=== PATIENT | male | born 1965 | race Caucasian/White ===

== ENCOUNTER 2020-05-13 21:14 | Inpatient (IN) | payer BC, OTHER ==
[~2020-05-13] VITALS: Ht 172.7 cm; Wt 99.6 kg
--- NOTE | 2020-05-13 21:35 | NUR ---
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
--- NOTE | 2020-05-13 22:00 | NUR ---
54 YEAR OLD MALE TO ED FOR CHILLS, WEAKNESS, FATIGUE, FREQUENT COUGH, SORE THROAT, AND LIGHTHEADEDNESS. HE WAS SEEN TESTED AND TREATED FOR COVID AT AN URGENT CARE. HE WAS GIVEN ALBUTEROL, STEROIDS, AND ZPACK WITH NO IMPROVEMENT IN SYMPTOMS. O2 SAT ON RA WAS 91-92%. NASAL CANNULA PLACED WITH IMPROVEMENT IN SYMPTOMS.
[2020-05-13 22:18] LABS: BASOPHILS % (AUTO) 1 % (0-1); EOSINOPHILS % (AUTO) 0 % (1-7); LYMPHOCYTES % (AUTO) 24 % (22-44); MEAN CORPUSCULAR HEMOGLOBIN 29.7 pg (27.5-34.5); MEAN CORPUSCULAR HGB CONC 33.7 g/dL (33.2-36.2); MEAN PLATELET VOLUME 8.1 fL (7.4-10.4); MONOCYTES % (AUTO) 12 % (2-9); NEUTROPHILS % (AUTO) 64 % (42-75); PLATELET COUNT 150 x10^3/uL (130-400); RED BLOOD COUNT 5.22 x10^6/uL (4.38-5.82); RED CELL DISTRIBUTION WIDTH 13.6 % (9.4-14.8)
[2020-05-13 22:23] LABS: MD NO
[2020-05-13 22:34] LABS: ALBUMIN 3.5 g/dL (3.4-5.0); ANION GAP 6 mmol/L (5-15); CALCIUM 8.7 mg/dL (8.5-10.1); CHLORIDE 104 mmol/L (98-107)
--- NOTE | 2020-05-13 22:37 | NUR ---
PER MD REQUEST, PATIENT WILL BE ASSESSED OFF OF NASAL CANULA AND O2. BEFORE REMOVAL, HE WAS SATTING AT 95% ON 2 L.
[2020-05-13 22:38] LABS: TROPONIN I < 0.015 ng/mL (0.000-0.045)
--- NOTE | 2020-05-13 22:49 | NUR ---
PATIENT AT 86% ON RA. MD NOTIFIED. WILL ADMIT.
[2020-05-13] MEDS ORDERED: DEXAMETHASONE 4 MG TABLET PO ONE (23:00)
[2020-05-13] MEDS ORDERED: DEXAMETHASONE 4 MG TABLET ONE (23:13)
[2020-05-13] MEDS ORDERED: POLYETHYLENE GLYCOL 17 GM PACKET PO PRN (23:30)
[2020-05-13] MEDS ORDERED: ONDANSETRON ODT 4 MG PO PRN (23:30)
[2020-05-13] MEDS ORDERED: BISACODYL 10 MG SUPP PR PRN (23:30)
[2020-05-13] MEDS ORDERED: HEPARIN 5,000 UNITS/ML, 1ML ONE (23:36)
[2020-05-13] MEDS ORDERED: GUAIFENESIN/DM 200-20MG, 10ML UDC ONE (23:36)
[2020-05-13] MEDS ORDERED: NS + 20MEQ KCL 1,000 ML IV ONE (23:37)
[2020-05-13] MEDS: NS + 20MEQ KCL 1,000 ML IV SCH (23:51)
[2020-05-13] MEDS: HEPARIN 5,000 UNITS/ML, 1ML SQ SCH (23:52)
[2020-05-13] MEDS: GUAIFENESIN/DM 200-20MG, 10ML UDC PO PRN (23:52)
--- NOTE | 2020-05-14 00:30 | NUR ---
PATIENT RESTING IN BED IN NO APPARENT DISTRESS. WILL CONTINUE TO MONITOR.
--- NOTE | 2020-05-14 01:29 | NUR ---
patient resting in bed, awake and in no apparent distress.
[2020-05-14] MEDS ORDERED: ALBUTEROL HFA 90 MCG/SPRAY INH PRN (02:30)
--- NOTE | 2020-05-14 03:25 | NUR ---
pt resting in bed, no complaints at this time, vss
--- NOTE | 2020-05-14 04:59 | NUR ---
patient resting in bed comfortably in no apparent distress. VSS. Lab at bedside.
[2020-05-14 05:12] LABS: MEAN CORPUSCULAR HEMOGLOBIN 29.8 pg (27.5-34.5); MEAN CORPUSCULAR HGB CONC 33.6 g/dL (33.2-36.2); MEAN PLATELET VOLUME 8.2 fL (7.4-10.4); PLATELET COUNT 154 x10^3/uL (130-400); RED BLOOD COUNT 5.37 x10^6/uL (4.38-5.82); RED CELL DISTRIBUTION WIDTH 13.7 % (9.4-14.8)
[2020-05-14 05:18] LABS: ANION GAP 4 mmol/L (5-15); CALCIUM 8.7 mg/dL (8.5-10.1); CHLORIDE 108 mmol/L (98-107); CREATININE 0.97 mg/dL (0.7-1.3); MD YES
[2020-05-14 05:52] LABS: <PLATELET ESTIMATE> ADEQUATE; <PLT MORPHOLOGY> NORMAL PLT MORPH; <RBC MORPHOLOGY> NORMAL; BANDS%(MANUAL) 6 % (0-7); LYMPH#(MANUAL) 0.46 x10^3/uL (1-3.4); LYMPHS% (MANUAL) 14 % (22-44); MONOS% (MANUAL) 3 % (2-9); SEG#(MANUAL) 2.54 x10^3/uL (1.8-6.8); SEGS% (MANUAL) 77 % (42-75)
--- NOTE | 2020-05-14 06:30 | NUR ---
Patient resting in bed. No apparent distress. He denies any complaints or requests at this time.
[2020-05-14 07:44] VITALS: BP 107/73
[2020-05-14 07:54] LABS: C-REACTIVE PROTEIN, QUANT 0.74 mg/dL (0.02-0.49)
[2020-05-14] MEDS: HEPARIN 5,000 UNITS/ML, 1ML SQ SCH (08:12)
[2020-05-14] MEDS: DOXYCYCLINE 100MG TABLET PO SCH ×2 (08:12→20:09)
[2020-05-14] MEDS: SENNA/DOCUSATE TABLET PO SCH (08:12)
[2020-05-14 08:15] LABS: D-DIMER 0.38 ug/mlFEU (0.00-0.52)
[2020-05-14 08:37] LABS: HCT (SEDRATE) 47.6 % (39.2-51.8)
[2020-05-14] MEDS: CEFTRIAXONE PMX 1GM/50ML 50 ML IV SCH (09:36)
[2020-05-14] MEDS ORDERED: LISI2.5T PO (10:01)
[2020-05-14] MEDS ORDERED: ATOR-2 PO (10:01)
[2020-05-14 12:22] VITALS: BP 130/85
[2020-05-14] MEDS ORDERED: ENOXAPARIN 40 MG/0.4 ML SQ SCH (16:00)
[2020-05-14] MEDS: NS + 20MEQ KCL 1,000 ML IV SCH (17:37)
[2020-05-14 19:01] VITALS: BP 105/72
[2020-05-14] MEDS: ATORVASTATIN 20 MG TABLET PO SCH (20:09)
[2020-05-15 01:07] VITALS: BP 120/82
[2020-05-15] MEDS: GUAIFENESIN/DM 200-20MG, 10ML UDC PO PRN (01:27)
[2020-05-15 05:25] LABS: CHLORIDE 112 mmol/L (98-107)
[2020-05-15 05:30] LABS: ANION GAP 6 mmol/L (5-15); CALCIUM 8.5 mg/dL (8.5-10.1); CREATININE 0.76 mg/dL (0.7-1.3)
[2020-05-15 06:26] LABS: BASOPHILS % (AUTO) 0 % (0-1); EOSINOPHILS % (AUTO) 0 % (1-7); LYMPHOCYTES % (AUTO) 14 % (22-44); MEAN CORPUSCULAR HEMOGLOBIN 29.8 pg (27.5-34.5); MEAN CORPUSCULAR HGB CONC 33.1 g/dL (33.2-36.2); MEAN PLATELET VOLUME 8.7 fL (7.4-10.4); MONOCYTES % (AUTO) 10 % (2-9); NEUTROPHILS % (AUTO) 76 % (42-75); PLATELET COUNT 153 x10^3/uL (130-400); RED BLOOD COUNT 5.01 x10^6/uL (4.38-5.82); RED CELL DISTRIBUTION WIDTH 13.7 % (9.4-14.8)
[2020-05-15 06:52] LABS: MD NO
[2020-05-15] MEDS: NS + 20MEQ KCL 1,000 ML IV SCH ×2 (08:46→21:30)
[2020-05-15] MEDS: CEFTRIAXONE PMX 1GM/50ML 50 ML IV SCH (08:46)
[2020-05-15] MEDS: DOXYCYCLINE 100MG TABLET PO SCH ×2 (08:46→20:12)
[2020-05-15] MEDS: SENNA/DOCUSATE TABLET PO SCH (08:46)
[2020-05-15 09:18] VITALS: BP 122/81
[2020-05-15 14:56] VITALS: BP 114/75
[2020-05-15] MEDS: ACETAMINOPHEN 325 MG TABLET PO PRN (15:34)
[2020-05-15] MEDS: ENOXAPARIN 100 MG/ML SQ SCH (15:35)
[2020-05-15] MEDS: DEXAMETHASONE 4 MG/ML, 1ML IVPush SCH (15:35)
[2020-05-15] MEDS: ASCORBIC ACID 500 MG TABLET PO SCH ×2 (15:35→20:12)
[2020-05-15] MEDS ORDERED: OMNIPAQUE 350 MG/ML, 100ML BOTTLE ONE (15:57)
[2020-05-15 19:13] VITALS: BP 105/61
[2020-05-15] MEDS: MELATONIN 5 MG TABLET PO SCH (20:12)
[2020-05-15] MEDS: ATORVASTATIN 20 MG TABLET PO SCH (20:12)
[2020-05-15] MEDS: THIAMINE 100MG TABLET PO SCH (20:12)
[2020-05-16 01:28] VITALS: BP 109/62
[2020-05-16] MEDS: ENOXAPARIN 100 MG/ML SQ SCH (03:16)
[2020-05-16] MEDS: GUAIFENESIN/DM 200-20MG, 10ML UDC PO PRN (03:19)
[2020-05-16 05:30] LABS: D-DIMER 0.31 ug/mlFEU (0.00-0.52)
[2020-05-16 05:32] LABS: CHLORIDE 113 mmol/L (98-107)
[2020-05-16 05:43] LABS: ANION GAP 6 mmol/L (5-15); CALCIUM 8.6 mg/dL (8.5-10.1); CREATININE 0.77 mg/dL (0.7-1.3)
[2020-05-16] MEDS: CEFTRIAXONE PMX 1GM/50ML 50 ML IV SCH (08:50)
[2020-05-16] MEDS: ASCORBIC ACID 500 MG TABLET PO SCH ×3 (08:51→20:45)
[2020-05-16] MEDS: DOXYCYCLINE 100MG TABLET PO SCH ×2 (08:51→20:45)
[2020-05-16] MEDS: THIAMINE 100MG TABLET PO SCH ×2 (08:51→20:45)
[2020-05-16] MEDS: ZINC SULFATE 220 MG CAPSULE PO SCH (08:52)
[2020-05-16] MEDS: CHOLECALCIFEROL 1,000 UNIT TABLET PO SCH (08:52)
[2020-05-16] MEDS: DEXAMETHASONE 4 MG/ML, 1ML IVPush SCH (08:53)
[2020-05-16] MEDS: SENNA/DOCUSATE TABLET PO SCH (09:00)
[2020-05-16] MEDS: ACETAMINOPHEN 325 MG TABLET PO PRN (09:20)
[2020-05-16 09:33] VITALS: BP 114/74
[2020-05-16] MEDS: NS + 20MEQ KCL 1,000 ML IV SCH ×2 (10:38→20:54)
[2020-05-16] MEDS ORDERED: REMDESIVIR 200 MG in SODIUM CHLORIDE 0.9% 250 ML IVPB ONE (15:00)
[2020-05-16 15:52] LABS: BASOPHILS % (AUTO) 0 % (0-1); EOSINOPHILS % (AUTO) 0 % (1-7); LYMPHOCYTES % (AUTO) 8 % (22-44); MEAN CORPUSCULAR HEMOGLOBIN 29.8 pg (27.5-34.5); MEAN CORPUSCULAR HGB CONC 33.4 g/dL (33.2-36.2); MEAN PLATELET VOLUME 9.7 fL (7.4-10.4); MONOCYTES % (AUTO) 8 % (2-9); NEUTROPHILS % (AUTO) 84 % (42-75); PLATELET COUNT 168 x10^3/uL (130-400); RED BLOOD COUNT 4.85 x10^6/uL (4.38-5.82); RED CELL DISTRIBUTION WIDTH 13.6 % (9.4-14.8)
[2020-05-16 15:58] LABS: MD NO
[2020-05-16 16:06] LABS: BILIRUBIN,TOTAL 0.6 mg/dL (0.2-1.0)
[2020-05-16 18:48] VITALS: BP 119/77
[2020-05-16] MEDS: MELATONIN 5 MG TABLET PO SCH (20:44)
[2020-05-16] MEDS: ATORVASTATIN 20 MG TABLET PO SCH (20:44)
[2020-05-17 01:40] VITALS: BP 113/75
[2020-05-17 05:24] LABS: ALBUMIN 2.7 g/dL (3.4-5.0); ANION GAP 5 mmol/L (5-15); CALCIUM 8.6 mg/dL (8.5-10.1); CHLORIDE 111 mmol/L (98-107)
[2020-05-17 05:30] LABS: ALANINE AMINOTRANSFERASE 32 U/L (12-78); ALKALINE PHOSPHATASE 37 U/L (45-117); BILIRUBIN,TOTAL 0.5 mg/dL (0.2-1.0); CREATININE 0.68 mg/dL (0.7-1.3); TOTAL PROTEIN 6.5 g/dL (6.4-8.2)
[2020-05-17 06:19] LABS: D-DIMER 0.29 ug/mlFEU (0.00-0.52); INTERNATIONAL NORMALIZED RATIO 1.04 (0.93-1.1); PROTHROMBIN TIME 10.7 Seconds (9.6-11.5)
[2020-05-17 06:28] VITALS: BP 125/79
[2020-05-17] MEDS: GUAIFENESIN/DM 200-20MG, 10ML UDC PO PRN (06:37)
[2020-05-17] MEDS: CHOLECALCIFEROL 1,000 UNIT TABLET PO SCH (07:51)
[2020-05-17] MEDS: ASCORBIC ACID 500 MG TABLET PO SCH ×3 (07:51→20:17)
[2020-05-17] MEDS: THIAMINE 100MG TABLET PO SCH ×2 (07:51→20:18)
[2020-05-17] MEDS: DEXAMETHASONE 4 MG/ML, 1ML IVPush SCH (07:51)
[2020-05-17] MEDS: ZINC SULFATE 220 MG CAPSULE PO SCH (07:51)
[2020-05-17] MEDS: CEFTRIAXONE PMX 1GM/50ML 50 ML IV SCH (07:51)
[2020-05-17] MEDS: SENNA/DOCUSATE TABLET PO SCH (07:51)
[2020-05-17] MEDS: DOXYCYCLINE 100MG TABLET PO SCH ×2 (07:51→20:18)
[2020-05-17] MEDS: NS + 20MEQ KCL 1,000 ML IV SCH ×2 (07:53→17:13)
[2020-05-17] MEDS: ACETAMINOPHEN 325 MG TABLET PO PRN ×2 (07:59→15:24)
[2020-05-17 12:34] VITALS: BP 120/78
[2020-05-17] MEDS: ENOXAPARIN 40 MG/0.4 ML SQ SCH (15:20)
[2020-05-17] MEDS ORDERED: PANTOPRAZOLE 40MG TABLET ONE (15:40)
[2020-05-17] MEDS ORDERED: CALCIUM CARBONATE 500 MG TAB.CHEW ONE (15:40)
[2020-05-17] MEDS: PANTOPRAZOLE 40MG TABLET PO SCH ×2 (15:42→20:17)
[2020-05-17] MEDS ORDERED: CALCIUM CARBONATE 500 MG TAB.CHEW PO PRN (16:00)
[2020-05-17] MEDS ORDERED: REMDESIVIR 100 MG in SODIUM CHLORIDE 0.9% 250 ML IVPB SCH (16:00)
[2020-05-17] MEDS: REMDESIVIR 100 MG in SODIUM CHLORIDE 0.9% 250 ML IVPB SCH (17:13)
[2020-05-17 19:12] VITALS: BP 109/78
[2020-05-17] MEDS: ATORVASTATIN 20 MG TABLET PO SCH (20:18)
[2020-05-17] MEDS: MELATONIN 5 MG TABLET PO SCH (20:18)
[2020-05-18 00:54] VITALS: BP 115/79
[2020-05-18 06:01] LABS: ALBUMIN 2.8 g/dL (3.4-5.0); ANION GAP 6 mmol/L (5-15); CALCIUM 8.7 mg/dL (8.5-10.1); CHLORIDE 109 mmol/L (98-107)
[2020-05-18 06:04] LABS: ALANINE AMINOTRANSFERASE 33 U/L (12-78); ALKALINE PHOSPHATASE 38 U/L (45-117); BILIRUBIN,TOTAL 0.5 mg/dL (0.2-1.0); CREATININE 0.76 mg/dL (0.7-1.3)
[2020-05-18 06:30] VITALS: BP 122/81
[2020-05-18] MEDS: DOXYCYCLINE 100MG TABLET PO SCH ×2 (08:12→20:34)
[2020-05-18] MEDS: CHOLECALCIFEROL 1,000 UNIT TABLET PO SCH (08:12)
[2020-05-18] MEDS: PANTOPRAZOLE 40MG TABLET PO SCH ×2 (08:12→20:34)
[2020-05-18] MEDS: CEFTRIAXONE PMX 1GM/50ML 50 ML IV SCH (08:12)
[2020-05-18] MEDS: SENNA/DOCUSATE TABLET PO SCH (08:13)
[2020-05-18] MEDS: DEXAMETHASONE 4 MG/ML, 1ML IVPush SCH (08:13)
[2020-05-18] MEDS: ASCORBIC ACID 500 MG TABLET PO SCH ×3 (08:13→20:34)
[2020-05-18] MEDS: THIAMINE 100MG TABLET PO SCH ×2 (08:13→20:34)
[2020-05-18] MEDS: ZINC SULFATE 220 MG CAPSULE PO SCH (08:13)
[2020-05-18] MEDS: NS + 20MEQ KCL 1,000 ML IV SCH ×2 (11:37→23:30)
[2020-05-18 12:48] VITALS: BP 121/64
[2020-05-18] MEDS: ENOXAPARIN 40 MG/0.4 ML SQ SCH (15:37)
[2020-05-18] MEDS: GUAIFENESIN/COD200MG-20MG/10ML LIQUID PO PRN (15:44)
[2020-05-18] MEDS: REMDESIVIR 100 MG in SODIUM CHLORIDE 0.9% 250 ML IVPB SCH (17:38)
[2020-05-18 19:29] VITALS: BP 118/77
[2020-05-18] MEDS: ATORVASTATIN 20 MG TABLET PO SCH (20:34)
[2020-05-18] MEDS: MELATONIN 5 MG TABLET PO SCH (20:34)
[2020-05-19 01:06] VITALS: BP 125/84
[2020-05-19 06:33] LABS: ALANINE AMINOTRANSFERASE 40 U/L (12-78); ALBUMIN 2.7 g/dL (3.4-5.0); ANION GAP 4 mmol/L (5-15); CALCIUM 8.6 mg/dL (8.5-10.1); CHLORIDE 108 mmol/L (98-107); CREATININE 0.69 mg/dL (0.7-1.3)
[2020-05-19 06:36] VITALS: BP 127/79
[2020-05-19 06:42] LABS: ALKALINE PHOSPHATASE 37 U/L (45-117); BILIRUBIN,TOTAL 0.5 mg/dL (0.2-1.0); C-REACTIVE PROTEIN, QUANT 0.98 mg/dL (0.02-0.49); TOTAL PROTEIN 6.5 g/dL (6.4-8.2)
[2020-05-19 06:48] LABS: D-DIMER 0.54 ug/mlFEU (0.00-0.52); INTERNATIONAL NORMALIZED RATIO 1.03 (0.93-1.1); PROTHROMBIN TIME 10.6 Seconds (9.6-11.5)
[2020-05-19] MEDS: CEFTRIAXONE PMX 1GM/50ML 50 ML IV SCH (08:20)
[2020-05-19] MEDS: CHOLECALCIFEROL 1,000 UNIT TABLET PO SCH (08:21)
[2020-05-19] MEDS: ZINC SULFATE 220 MG CAPSULE PO SCH (08:21)
[2020-05-19] MEDS: DOXYCYCLINE 100MG TABLET PO SCH ×2 (08:21→20:48)
[2020-05-19] MEDS: PANTOPRAZOLE 40MG TABLET PO SCH ×2 (08:21→20:49)
[2020-05-19] MEDS: THIAMINE 100MG TABLET PO SCH ×2 (08:21→20:49)
[2020-05-19] MEDS: ASCORBIC ACID 500 MG TABLET PO SCH ×3 (08:21→20:49)
[2020-05-19] MEDS: DEXAMETHASONE 4 MG/ML, 1ML IVPush SCH (08:21)
[2020-05-19] MEDS: SENNA/DOCUSATE TABLET PO SCH (08:22)
[2020-05-19] MEDS: GUAIFENESIN/COD200MG-20MG/10ML LIQUID PO PRN ×2 (08:57→15:24)
[2020-05-19 12:40] VITALS: BP 117/80
[2020-05-19] MEDS: ENOXAPARIN 40 MG/0.4 ML SQ SCH (15:22)
[2020-05-19] MEDS: ACETAMINOPHEN 325 MG TABLET PO PRN (15:24)
[2020-05-19] MEDS: REMDESIVIR 100 MG in SODIUM CHLORIDE 0.9% 250 ML IVPB SCH (17:36)
[2020-05-19] MEDS: NS + 20MEQ KCL 1,000 ML IV SCH (19:30)
[2020-05-19 20:00] VITALS: BP 126/76
[2020-05-19] MEDS: MELATONIN 5 MG TABLET PO SCH (20:49)
[2020-05-19] MEDS: ATORVASTATIN 20 MG TABLET PO SCH (20:49)
[2020-05-20 01:03] VITALS: BP 126/89
[2020-05-20] MEDS: CEFTRIAXONE PMX 1GM/50ML 50 ML IV SCH (08:05)
[2020-05-20] MEDS: THIAMINE 100MG TABLET PO SCH ×2 (08:06→20:18)
[2020-05-20] MEDS: CHOLECALCIFEROL 1,000 UNIT TABLET PO SCH (08:06)
[2020-05-20] MEDS: ASCORBIC ACID 500 MG TABLET PO SCH ×3 (08:06→20:19)
[2020-05-20] MEDS: ZINC SULFATE 220 MG CAPSULE PO SCH (08:06)
[2020-05-20] MEDS: DEXAMETHASONE 4 MG/ML, 1ML IVPush SCH (08:06)
[2020-05-20] MEDS: PANTOPRAZOLE 40MG TABLET PO SCH ×2 (08:06→20:18)
[2020-05-20] MEDS: SENNA/DOCUSATE TABLET PO SCH (08:06)
[2020-05-20] MEDS: DOXYCYCLINE 100MG TABLET PO SCH ×2 (08:06→20:18)
[2020-05-20 08:20] VITALS: BP 120/88
[2020-05-20] MEDS: ACETAMINOPHEN 325 MG TABLET PO PRN ×2 (12:02→17:30)
[2020-05-20 14:20] VITALS: BP 111/74
[2020-05-20] MEDS: ENOXAPARIN 100 MG/ML SQ SCH (16:10)
[2020-05-20] MEDS: REMDESIVIR 100 MG in SODIUM CHLORIDE 0.9% 250 ML IVPB SCH (17:25)
[2020-05-20] MEDS: ATORVASTATIN 20 MG TABLET PO SCH (20:18)
[2020-05-20] MEDS: MELATONIN 5 MG TABLET PO SCH (20:18)
[2020-05-20 21:42] VITALS: BP 113/78
[2020-05-21 01:21] VITALS: BP 109/79
[2020-05-21] MEDS: ENOXAPARIN 100 MG/ML SQ SCH (04:00)
[2020-05-21 05:24] LABS: CHLORIDE 106 mmol/L (98-107)
[2020-05-21 05:29] LABS: ALANINE AMINOTRANSFERASE 72 U/L (12-78); ALBUMIN 2.8 g/dL (3.4-5.0); ALKALINE PHOSPHATASE 39 U/L (45-117); ANION GAP 9 mmol/L (5-15); BILIRUBIN,TOTAL 0.4 mg/dL (0.2-1.0); CALCIUM 8.6 mg/dL (8.5-10.1); CREATININE 0.87 mg/dL (0.7-1.3); TOTAL PROTEIN 6.6 g/dL (6.4-8.2)
[2020-05-21 07:43] VITALS: BP 122/83
[2020-05-21] MEDS: CEFTRIAXONE PMX 1GM/50ML 50 ML IV SCH (08:43)
[2020-05-21] MEDS: DEXAMETHASONE 4 MG/ML, 1ML IVPush SCH (08:44)
[2020-05-21] MEDS: ASCORBIC ACID 500 MG TABLET PO SCH (08:44)
[2020-05-21] MEDS: DOXYCYCLINE 100MG TABLET PO SCH (08:44)
[2020-05-21] MEDS: PANTOPRAZOLE 40MG TABLET PO SCH (08:44)
[2020-05-21] MEDS: ZINC SULFATE 220 MG CAPSULE PO SCH (08:44)
[2020-05-21] MEDS: CHOLECALCIFEROL 1,000 UNIT TABLET PO SCH (08:44)
[2020-05-21] MEDS: SENNA/DOCUSATE TABLET PO SCH (08:45)
[2020-05-21] MEDS: THIAMINE 100MG TABLET PO SCH (08:45)
[2020-05-21] MEDS ORDERED: ASCO1500 PO (10:40)
[2020-05-21] MEDS ORDERED: CHOL10003 PO (10:40)
[2020-05-21] MEDS ORDERED: ZINC220C7 PO (10:40)
[2020-05-21 14:04] VITALS: BP 104/72
== END 2020-05-21 14:25 | disposition home or self-care (01) | DRG 177 ==
LOC: ED 22:18 → EDIP 23:15 → 4EST 05-14 07:13 → EDIP 05-14 07:16 → 4EST 05-14 07:37
PROVIDERS: ADMIT Family Medicine; ATTEND Hospitalist
DX: U07.1 COVID-19 (principal); J12.89 Other viral pneumonia; E43 Unspecified severe protein-calorie malnutrition; J96.01 Acute respiratory failure with hypoxia; E78.00 Pure hypercholesterolemia, unspecified; E78.5 Hyperlipidemia, unspecified; E87.6 Hypokalemia; I10 Essential (primary) hypertension; Z68.33 Body mass index [BMI] 33.0-33.9, adult
CPT/HCPCS: 36415; 36600; 71045; 71275; 80048; 80053; 82040; 82247; 82728; 82803; 83615; 83735; 84075; 84145; 84450; 84460; 84484; 85014; 85018; 85025; 85049; 85379; 85384; 85610; 85651; 86140; 93005; 96372; 99285; G0378; J0696; J1100; J1644; J1650; J3480; Q9967; J7050

== ENCOUNTER 2020-08-28 18:07 | Emergency (ER) | payer BC ==
[~2020-08-28] VITALS: Ht 172.7 cm; Wt 99.9 kg
[~2020-08-28 18:07] MED LIST: ASCO1500 PO; ATOR-2 PO; CHOL10003 PO; LISI2.5T PO; ZINC220C7 PO
--- NOTE | 2020-08-28 19:38 | NUR ---
in NAD. patient resting in bed. c/o lateral back pain radiating to pelvic/groin region and shooting down legs per pt report. this has been continuous for past 3 weeks or so. patient did have fall in his garage due to his legs giving out per his report as well. takes bayers for pain with no effective retirement relief. 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 denies incontinence. palpable pulses BLE. numbness to bilateral upper thighs to knees. moderate strength in BLE. no discoloration. A&Ox4. call cooney in reach. safety maintained. will continue to monitor.
[2020-08-28] MEDS ORDERED: KETOROLAC 30 MG/1 ML IM ONE (20:00)
[2020-08-28] MEDS ORDERED: ONDANSETRON ODT 4 MG PO ONE (20:00)
[2020-08-28] MEDS ORDERED: DIAZEPAM 5 MG TABLET PO ONE (20:00)
[2020-08-28] MEDS ORDERED: SODIUM CHLORIDE FLUSH 10ML SYR IVF ONE (20:00)
[2020-08-28] MEDS ORDERED: KETOROLAC 30 MG/1 ML ONE (20:03)
[2020-08-28] MEDS ORDERED: DIAZEPAM 5 MG TABLET ONE (20:03)
[2020-08-28] MEDS ORDERED: ONDANSETRON ODT 4 MG ONE (20:03)
--- NOTE | 2020-08-28 20:30 | NUR ---
in NAD. resting in bed. call cooney in reach. safety maintained
[2020-08-28 20:31] LABS: BASOPHILS % (AUTO) 1 % (0-1); EOSINOPHILS % (AUTO) 4 % (1-7); LYMPHOCYTES % (AUTO) 22 % (22-44); MEAN CORPUSCULAR HEMOGLOBIN 30.3 pg (27.5-34.5); MEAN CORPUSCULAR HGB CONC 34.2 g/dL (33.2-36.2); MEAN PLATELET VOLUME 8.2 fL (7.4-10.4); MONOCYTES % (AUTO) 12 % (2-9); NEUTROPHILS % (AUTO) 61 % (42-75); PLATELET COUNT 284 x10^3/uL (130-400); RED BLOOD COUNT 5.01 x10^6/uL (4.38-5.82); RED CELL DISTRIBUTION WIDTH 13.3 % (9.4-14.8)
[2020-08-28 20:33] LABS: MD NO
[2020-08-28 20:42] LABS: ALANINE AMINOTRANSFERASE 27 U/L (12-78); ALBUMIN 3.5 g/dL (3.4-5.0); ANION GAP 5 mmol/L (5-15); CALCIUM 8.5 mg/dL (8.5-10.1); CHLORIDE 110 mmol/L (98-107); CREATININE 0.91 mg/dL (0.7-1.3)
[2020-08-28 20:44] LABS: ALKALINE PHOSPHATASE 65 U/L (45-117); BILIRUBIN,TOTAL 0.3 mg/dL (0.2-1.0); TOTAL PROTEIN 7.7 g/dL (6.4-8.2)
--- NOTE | 2020-08-28 21:30 | NUR ---
in NAD. resting in bed. reports pain is better after medications. safety maintained. will continue to monitor.
[2020-08-28 22:28] LABS: MICROSCOPIC NOT IND
--- NOTE | 2020-08-28 23:02 | NUR ---
discharge instructions reviewed with patient. no further questions from patient at this time. patient did receive valium during his stay and he states he will call an uber from ER to get home tonight. in NAD. IV removed per dc protocol. all personal belongings with patient. steady gait.
[2020-08-28 23:16] VITALS: BP 121/81
== END 2020-08-28 23:18 | disposition home or self-care (01) ==
LOC: ED 23:03
DX: S39.012A Strain of muscle, fascia and tendon of lower back, initial encounter (principal); R10.31 Right lower quadrant pain; R10.32 Left lower quadrant pain; I10 Essential (primary) hypertension; X58.XXXA Exposure to other specified factors, initial encounter; Y93.89 Activity, other specified; Y92.89 Other specified places as the place of occurrence of the external cause; Y99.8 Other external cause status
CPT/HCPCS: 36415; 72072; 72110; 80053; 81003; 83690; 85025; 96372; 99284; J1885; Q0162